=== PATIENT | male | born 1955 | race Caucasian/White ===

== ENCOUNTER 2017-05-15 15:52 | Inpatient (IN) | payer MEDICARE, OTHER ==
[2017-05-15] MEDS ORDERED: ONDANSETRON HCL/PF 2 MG/ML VIAL IV ONE (16:22)
[2017-05-15] MEDS ORDERED: HYDROmorphone HCL 1 MG/ML DISP.SYRIN IV ONE ×2 (16:22→18:27)
[2017-05-15] MEDS ORDERED: HYDROmorphone HCL 1 MG/ML DISP.SYRIN ONE ×2 (16:29→18:27)
[2017-05-15] MEDS ORDERED: ONDANSETRON HCL/PF 2 MG/ML VIAL ONE (16:29)
[2017-05-15 16:34] LABS: Hematocrit 52.1 % (42.0-52.0); Hemoglobin 17.2 gm/dL (13.5-18.0); Mean Cell Volume 91.1 fl (78-100); Mean Corpuscular Hemoglobin 30.1 pg (27-31); Mean Platelet Volume 9.4 fl (6.0-9.5); Neutrophil # 12.5 K/mm3 (1.3-6.0); Neutrophil % 76.2 % (42-75.0); Platelet Count 422 K/mm3 (150-450); Red Blood Count 5.72 M/mm3 (4.7-6.0); White Blood Count 16.5 K/mm3 (4.0-10.5)
[2017-05-15 16:47] LABS: Albumin * 4.1 gm/dl (3.4-5.0); Anion Gap 13.4 mmol/L (6.8-13.8); BUN/Creatinine Ratio 10.4 (9.0-21.6); Bilirubin, Total 0.4 mg/dL (0.0-1.1); Ca. Corrected For Albumin 9.9 mg/dL (8.4-10.2); Calcium * 10.3 mg/dL (7.9-10.9); Potassium 4.4 mmol/L (3.4-4.6); Total Protein 8.8 gm/dL (6.2-8.2)
[2017-05-15] MEDS: NORMAL SALINE 1,000 ML IV PRN ×2 (17:12→22:29)
--- NOTE | 2017-05-15 19:18 | ERNOTE ---
Abdominal HPI - Narrative Date of Service: 05/15/17 - General Chief Complaint: Abdominal Pain Time Seen by Provider: 05/15/17 15:58 Source: patient Exam Limitations: no limitations - Immun/Allergies/Home Medications Immunizatons: IMMUNIZATION HX Immunizations Up to Date Yes History of Influenza Vaccine Yes Hx Pneumococcal Vaccination Yes Allergies/Adverse Reactions: Allergies Iodinated Contrast- Oral and IV Dye [Iodinated Contrast Media - IV Dye] Allergy (Mild, Verified 05/15/17 16:08) Itching Home Medications: HOME MEDICATIONS Albuterol Sulfate [Albuterol Sulfate 0.63 MG/3ML] 0.63 mg IH QID PRN 09/21/15 [ Last Taken Unknown] Albuterol Sulfate [Proair Hfa] 2 puff IH TID PRN 09/21/15 [Last Taken Unknown] Beclomethasone Dipropionate [Qvar] 2 puff IH BID 09/21/15 [Last Taken Unknown] Losartan Potassium [Cozaar] 25 mg PO DAILY 09/21/15 [Last Taken Unknown] Metoprolol Tartrate [Lopressor] 25 mg PO BID 09/21/15 [Last Taken Unknown] Propafenone HCl 225 mg PO TID 09/21/15 [Last Taken Unknown] Ropinirole HCl 5 mg PO HS 09/21/15 [Last Taken Unknown] Salmeterol Xinafoate [Serevent Diskus] 50 mcg IH BID 09/21/15 [Last Taken Unknown] Tiotropium [place] [Spiriva] 1 cap IH DAILY 09/21/15 [Last Taken Unknown] Acetaminophen [Tylenol] 650 mg PO QID PRN #0 tablet 09/23/15 [Last Taken Unknown ] Activated Charcoal [CharcoCaps] 260 mg PO ACHS #120 capsule 09/23/15 [Last Taken Unknown] Calcium Polycarbophil [Fibercon] 625 mg PO ACHS #120 tablet 09/23/15 [Last Taken Unknown] Dicyclomine HCl [Bentyl] 20 mg PO ACHS #120 tablet 09/23/15 [Last Taken Unknown] Levothyroxine Sodium [Synthroid] 150 mcg PO DAILY@0700 #30 tablet 09/23/15 [ Last Taken Unknown] Simethicone [Mylicon Chewable Tablets] 80 mg PO ACHS #120 tab.chew 09/23/15 [ Last Taken Unknown] Sucralfate [Carafate] 1 g PO ACHS #120 tablet 09/23/15 [Last Taken Unknown] - History of Present Illness Narrative: Diffuse abdominal pain increasing over the last 2 days. Nausea. One loose stool today. Bloating. Pain diffuse, waxes and wanes, can be severe at times. No localizing pain. nothing makes this better or worse. Has not seen anyone else for this. No CP or SOB with it. No pain with urination. No new back pain. No fever. Timing: constant, getting worse Quality: aching, fullness Activities at Onset: none Modifying Factors - (Improves): Present: other - nothing Modifying Factors - (Worsens): Present: other - nothing Associated Symptoms: Present: nausea. Absent: headache, fever/chills, shortness of breath Prior Abdominal Problems: Present: similar symptoms Prior Treatment: Absent: recently seen Review of Systems - Review of Systems Constitutional: Absent: fever Respiratory: Absent: shortness of breath Cardiology: Absent: chest pain Gastrointestinal/Abdominal: Present: See HPI, abdominal pain All Other Systems: All systems neg except as marked - Patient's Past Medical History Patient History - Medical: Chronic Pain, GERD Patient History - Cardiac/Respiratory: Arrhythmias, COPD, Hypertension, Hyperlipidemia Patient History - Cancer: No Hx of Cancer Patient History - Surgical Procedures: Colonoscopy Patient History - Other: None - Family History Father Family History - Medical: No pertinent hx Family History - Cardiac/Respiratory: COPD - Social History Living Situations: significant other Abuse History: No History of abuse Psych History: No pertinent hx Smoking Status: Former smoker Have you smoked in the past 12 months: No Do you dip or chew tobacco: No Alcohol Use: rarely Drug Use: none - Immunizations Immunizations Up to Date: Yes Hx Pneumococcal Vaccination: Yes History of Influenza Vaccine: Yes Physical Exam - Physical Exam General Appearance: Present: alert, no apparent distress Head Exam: Present: normal inspection, no evidence of injury Eye Exam: Normal inspection: bilateral, PERRL: bilateral Ears, Nose, Throat: Present: normal ENT inspection Neck: Present: normal inspection Respiratory: Present: no respiratory distress, normal breath sounds, no accessory muscle use, lungs clear Cardiovascular/Chest: Present: regular rate, rhythm, normal peripheral pulses Gastrointestinal/Abdominal: Present: other - diffuse tenderness. Hypertympany. No guarding or rebound. no peritoneal signs. Moderate tenderness diffusely Back Exam: Absent: CVA tenderness (R), CVA tenderness (L) Extremity Exam: Present: normal inspection Neurological Exam: Present: alert, normal mood/affect, no motor/sensory deficits Skin Exam: Present: normal color, warm/dry ED Progress - Results and Orders Patient's Lab Results:: I have reviewed the patient's lab results. - Vital Signs Patient's Vital Signs:: I have reviewed the patient's vital signs. Vital Signs: Vital Signs 05/15/17 05/15/17 05/15/17 16:00 16:54 18:22 Temperature 37.0 C 36.4 C L Pulse Rate 81 94 70 Respiratory 18 20 22 H Rate Blood Pressure 83/52 128/61 105/48 O2 Sat by Pulse 93 86 L 93 Oximetry 05/15/17 18:53 Temperature Pulse Rate 59 L Respiratory 20 Rate Blood Pressure 114/45 O2 Sat by Pulse 91 Oximetry - EKG EKG: NSR EKG read: Interp. by me EKG Comments: NSR rate 85. Non-specific ST/T wave changes, no STEMI noted. - X-Ray X-Ray #1 X-Ray: abdomen Interpretation: Interp. by me X-ray Comments: I reviewed official radiology report - CT/Ultrasound CT/Ultrasound Narrative: I reviewed official radiology report CT scan - Progress/Reassessment Chief Complaint: Abdominal Pain Progress Note-Subjective: 05/15/17 19:16 IV fludis and pain medications given. NG placed. D/W Dr Rose and Dr Foote who will consult. Pt agreeable. Exam non-surgical at this time. Departure Clinical Impression: Abdominal pain, Partial small bowel obstruction - Departure Disposition: [facility] Condition: Stable Referrals: Brian Valadez MD [Primary Care Provider] -
[2017-05-15] MEDS ORDERED: ALBUTEROL SULFATE 200 PUFF INHALER IH PRN (20:22)
--- NOTE | 2017-05-15 20:22 | HP ---
Chief Complaint - Chief Complaint Date of Service: 05/15/17 Time of Service: 20:04 Chief Complaint: abdominal pain History of Present Illness: Ranjith Johnson, is 61-year-old white male with previous medical history of COPD, morbid obesity, atrial fibrillation, hypertension, hyperlipidemia, hypothyroidism, who was admitted on 05/15/2017 because of abdominal pain. The patient had been having diffuse abdominal pain over the last 2 days. This was associated with nausea, bloating but no vomiting. His pain is 7/10, sharp, waxing and waning. Patient says that he had right inguinal hernia that was repaired when he was a child. He has not had any abdominal surgery after that and has had no problems since then patient. He had 1 liquid stool this afternoon but had a good bowel movement earlier this morning. He denies any fever or chills; denies any constipation . In the emergency room his abdominal x-ray showed dilated bowel consistent with partial small bowel obstruction. His CT scan showed partial small bowel obstruction on the mid to distal jejunal area of undetermined etiology. He was then admitted for further management. - Patient's Past Medical History Patient History - Medical: Chronic Pain, GERD Patient History - Cardiac/Respiratory: Arrhythmias, COPD, Hypertension, Hyperlipidemia Patient History - Cancer: No Hx of Cancer Patient History - Surgical Procedures: Colonoscopy Patient History - Other: None - Family History Father Family History - Medical: No pertinent hx Family History - Cardiac/Respiratory: COPD - Social History Living Situations: significant other Abuse History: No History of abuse Psych History: No pertinent hx Smoking Status: Former smoker Have you smoked in the past 12 months: No Do you dip or chew tobacco: No Alcohol Use: rarely Drug Use: none - Immunizations Immunizations Up to Date: Yes Hx Pneumococcal Vaccination: Yes History of Influenza Vaccine: Yes Review Of Systems (GEN) - Review of Systems Generalized/Overall Review: Absent: Chills, Fever Respiratory: Absent: Cough, Shortness of Breath Cardiac: Absent: Chest Pain, Edema, Palpitations Abdominal: Present: Nausea, Abdominal Pain. Absent: Vomiting, Constipation Genitourinary: Absent: Urgency, Frequency Musculoskeletal: Present: Joint Pain Immunizations: IMMUNIZATION HX Immunizations Up to Date Yes History of Influenza Vaccine Yes Hx Pneumococcal Vaccination Yes Allergies/Adverse Reactions: Allergies Allergy/AdvReac Type Severity Reaction Status Date / Time Iodinated Contrast- Oral and Allergy Mild Itching Verified 05/15/17 16:08 IV Dye [Iodinated Contrast Media - IV Dye] Home Medications: HOME MEDICATIONS Albuterol Sulfate [Albuterol Sulfate 0.63 MG/3ML] 0.63 mg IH QID PRN 09/21/15 [ Last Taken Unknown] Albuterol Sulfate [Proair Hfa] 2 puff IH TID PRN 09/21/15 [Last Taken Unknown] Beclomethasone Dipropionate [Qvar] 2 puff IH BID 09/21/15 [Last Taken Unknown] Losartan Potassium [Cozaar] 50 mg PO DAILY 09/21/15 [Last Taken Unknown] Metoprolol Tartrate [Lopressor] 50 mg PO DAILY 09/21/15 [Last Taken Unknown] Ropinirole HCl 1 mg PO HS 09/21/15 [Last Taken Unknown] Tiotropium [place] [Spiriva] 1 cap IH DAILY 09/21/15 [Last Taken Unknown] Acetaminophen [Tylenol] 650 mg PO QID PRN #0 tablet 09/23/15 [Last Taken Unknown ] Amiodarone HCl [Cordarone] 400 mg PO DAILY 05/15/17 [Last Taken Unknown] Aspirin [Aspirin Enteric Coated] 81 mg PO DAILY 05/15/17 [Last Taken Unknown] Levothyroxine Sodium [Synthroid] 175 mcg PO DAILY 05/15/17 [Last Taken Unknown] Pantoprazole Sodium 40 mg PO DAILY 05/15/17 [Last Taken Unknown] Exam - Exam Vital Signs: Vital Signs - Last Taken Temp 36.4 C L 05/15/17 18:22 Pulse 67 05/15/17 19:39 Resp 20 05/15/17 19:39 BP 113/56 05/15/17 19:39 Pulse Ox 93 05/15/17 19:39 Constitutional: Present: Alert, Oriented x3, Cooperative ENT Exam: Present: hearing grossly normal Eye Exam: bilateral eye: normal inspection, PERRL, EOMI Neck: Present: supple Respiratory: Present: decreased breath sounds, No rales, No wheezing Cardiovascular/Chest: Present: regular rate, rhythm, no JVD, no murmur Abdomen: Present: no rebound tenderness, tender - mild. diffuse, firm, distended , hypoactive Extremity: Present: no calf tenderness, pedal edema Diagnostic Studies: Laboratory Results WBC 16.5 K/mm3 (4.0-10.5) H 05/15/17 16:20 RBC 5.72 M/mm3 (4.7-6.0) 05/15/17 16:20 Hgb 17.2 gm/dL (13.5-18.0) 05/15/17 16:20 Hct 52.1 % (42.0-52.0) H 05/15/17 16:20 MCV 91.1 fl (78-100) 05/15/17 16:20 MCH 30.1 pg (27-31) 05/15/17 16:20 MCHC 33.0 g/dl (32-36) 05/15/17 16:20 RDW 14.0 % (11.5-14.0) 05/15/17 16:20 Plt Count 422 K/mm3 (150-450) 05/15/17 16:20 MPV 9.4 fl (6.0-9.5) 05/15/17 16:20 Immature Gran % (Auto) 0.70 % (0.001-0.429) H 05/15/17 16:20 Immature Gran # (Auto) 0.12 K/mm3 (0.000-0.0310) H 05/15/17 16:20 Neutrophils % 76.2 % (42-75.0) H 05/15/17 16:20 Lymphocytes % 17.0 % (20-51) L 05/15/17 16:20 Monocytes % 4.9 % (0.0-9) 05/15/17 16:20 Eosinophils % 0.7 % (0.0-3.0) 05/15/17 16:20 Basophils % 0.5 % (0.0-1.0) 05/15/17 16:20 Nucleated RBC % 0.0 k/mm3 (0-1) 05/15/17 16:20 Neutrophils # 12.5 K/mm3 (1.3-6.0) H 05/15/17 16:20 Lymphocytes # 2.8 k/mm3 (1.5-3.5) 05/15/17 16:20 Monocytes # 0.8 k/mm3 (0.0-1.0) 05/15/17 16:20 Eosinophils # 0.1 k/mm3 (0.0-0.7) 05/15/17 16:20 Absolute Basophils 0.1 k/mm3 (0.0-0.1) 05/15/17 16:20 Sodium 137 mmol/L (132-142) 05/15/17 16:20 Plasma Sodium 137 mmol/L (130-142) 05/15/17 16:20 Potassium 4.4 mmol/L (3.4-4.6) 05/15/17 16:20 Chloride 98 mmol/L (97-106) 05/15/17 16:20 Carbon Dioxide 30.0 mmol/L (24-32.6) 05/15/17 16:20 Anion Gap 13.4 mmol/L (6.8-13.8) 05/15/17 16:20 BUN 17 mg/dL (6-23) 05/15/17 16:20 Creatinine 1.64 mg/dL (0.4-1.4) H 05/15/17 16:20 Est GFR (Non-Af Amer) 45 mL/min (60-130) L 05/15/17 16:20 BUN/Creatinine Ratio 10.4 (9.0-21.6) 05/15/17 16:20 Random Glucose 117 mg/dL (70-110) H 05/15/17 16:20 Calcium 10.3 mg/dL (7.9-10.9) 05/15/17 16:20 Calcium Adj for Albumin 9.9 mg/dL (8.4-10.2) 05/15/17 16:20 Total Bilirubin 0.4 mg/dL (0.0-1.1) 05/15/17 16:20 AST 22 U/L (0-48) 05/15/17 16:20 ALT 44 U/L (19-67) 05/15/17 16:20 Alkaline Phosphatase 103 U/L (50-170) 05/15/17 16:20 Total Protein 8.8 gm/dL (6.2-8.2) H 05/15/17 16:20 Albumin 4.1 gm/dl (3.4-5.0) 05/15/17 16:20 Amylase 49 U/L (25-115) 05/15/17 16:20 Lipase 111 U/L (73-393) 05/15/17 16:20 Assessment/Plan - Assessment/Plan (1) Partial small bowel obstruction Assessment: will continue with IVF, NPO and get surgical consult and pain control. continue with NGT suction. Problem: Acute (2) Abdominal pain Assessment: continue with pain control Problem: Acute Qualifiers: (3) Hypertension Problem: Acute (4) GERD (gastroesophageal reflux disease) Problem: Acute (5) Hypothyroid Problem: Acute (6) COPD (chronic obstructive pulmonary disease) Problem: Chronic Qualifiers: (7) History of atrial fibrillation Problem: Chronic (8) Leukocytosis Assessment: likley reactive. will monitor Problem: Acute
[2017-05-15] MEDS ORDERED: BUDESONIDE 0.5 MG/2 ML VIAL.NEB IH SCH (21:15)
[2017-05-15] MEDS: PANTOPRAZOLE SODIUM 40 MG in NORMAL SALINE 100 ML IV SCH (22:29)
[2017-05-15] MEDS: HYDROmorphone HCL 1 MG/ML DISP.SYRIN IV PRN (22:36)
[2017-05-16] MEDS ORDERED: BUDESONIDE 0.5 MG/2 ML VIAL.NEB IH ONE (01:46)
[2017-05-16] MEDS ORDERED: LORazepam 2 MG/ML DISP.SYRIN IV ONE (03:57)
[2017-05-16] MEDS: ALBUTEROL SULFATE/IPRATROPIUM 3 ML NEBU IH PRN (04:09)
[2017-05-16] MEDS: HYDROmorphone HCL 1 MG/ML DISP.SYRIN IV PRN ×5 (05:46→21:58)
[2017-05-16 05:51] LABS: Urine Bilirubin 1 mg/dl (NEGATIVE); Urine Blood Negative /ul (NEGATIVE); Urine Ketone Negative (NEGATIVE); Urine Nitrite Negative (NEGATIVE); Urine Protein 100 mg/dL (NEGATIVE); Urine Specific Gravity >=1.030 SP.GR. (1.005-1.030); Urine Urobilinogen Normal (NORMAL); Urine pH 5.5 pH (5.0-7.0)
[2017-05-16 06:01] LABS: Urine Appearance Slightly Cloudy; Urine Color Dark Yellow
[2017-05-16 06:02] LABS: Urine Bacteria TRACE; Urine Coarse Granular Cast 0-5 /LPF; Urine Hyaline Cast >25 /LPF; Urine RBC TRACE /hpf (0-5); Urine Transitional Epi Cells Moderate - 2+ /hpf
[2017-05-16] MEDS: BUDESONIDE 0.5 MG/2 ML VIAL.NEB IH SCH ×2 (06:11→18:20)
[2017-05-16] MEDS: NORMAL SALINE 1,000 ML IV PRN ×2 (06:53→17:52)
[2017-05-16] MEDS ORDERED: ALBUTEROL SULFATE 2.5 MG/0.5 ML VIAL.NEB IH PRN (07:45)
--- NOTE | 2017-05-16 09:22 | PN ---
Subjective - Date and Time Seen Date: 05/16/17 Time: 09:18 Subjective Narrative: Patient is still having abdominal pain, nausea but says he has been passing gas. Objective - Review of Systems Generalized/Overall Review: Denies: Chills, Fever Respiratory: Reports: Shortness of Breath. Denies: Wheezing Cardiac: Denies: Chest Pain, Edema, Palpitations Abdominal: Reports: Nausea, Abdominal Pain. Denies: Vomiting Genitourinary Symptoms: Denies: Urgency, Frequency Musculoskeletal Complaints: Denies: Joint Pain - Vitals Vitals: Last Vital Signs Temp 36.9 C 05/16/17 06:45 Pulse 58 L 05/16/17 06:45 Resp 22 H 05/16/17 06:45 BP 148/65 05/16/17 06:45 Pulse Ox 97 05/16/17 08:30 - Abnormal Lab Findings Abnormal Lab Findings: Abnormal Lab Results 05/16/17 Range/Units 05:43 Urine Protein 100 H (NEGATIVE) mg/dL Urine Bilirubin 1 H (NEGATIVE) mg/dl Prot Sulfosalicylic Acd 3+ H (0) mg/dL Urine WBC 5-10 H (0-5) /hpf Ur Epithelial Cells 5-10 H (0-5) /hpf Ur Transition Epith Cell Moderate - 2+ H (NONE) /hpf Hyaline Casts >25 H (NONE) /LPF Coarse Granular Casts 0-5 H (NONE) /LPF - Exam Constitutional: Present: Alert, Oriented x3, Cooperative ENT Exam: Present: hearing grossly normal Neck: Present: supple Respiratory: Present: decreased breath sounds. Absent: No rales, No wheezing Cardiovascular/Chest: Present: regular rate, rhythm, no JVD, no murmur Abdomen: Present: tender, firm, distended, hypoactive Extremity: Present: no pedal edema, no calf tenderness Assessment/Plan - Problems/Diagnosis (1) Partial small bowel obstruction Problem: Acute Narrative: continue with NPO/IVF/Pain control. NGT in place. (2) Abdominal pain Problem: Acute Qualifiers: Narrative: continue with pain control (3) Hypertension Problem: Acute (4) GERD (gastroesophageal reflux disease) Problem: Acute (5) Hypothyroid Problem: Acute (6) COPD (chronic obstructive pulmonary disease) Problem: Chronic Qualifiers: (7) History of atrial fibrillation Problem: Chronic (8) Leukocytosis Problem: Acute Narrative: CXR shows focal consolidation RUL - atelectasis vs infection. Will start patient on Rocephin and Flagyl.
[2017-05-16 10:18] LABS: Hematocrit 44.4 % (42.0-52.0); Hemoglobin 14.3 gm/dL (13.5-18.0); Mean Cell Volume 93.9 fl (78-100); Mean Corpuscular Hemoglobin 30.2 pg (27-31); Mean Corpuscular Hgb Conc 32.2 g/dl (32-36); Neutrophil # 8.8 K/mm3 (1.3-6.0); Neutrophil % 73.5 % (42-75.0); Platelet Count 291 K/mm3 (150-450); Red Blood Count 4.73 M/mm3 (4.7-6.0); Red Cell Distribution Width 14.3 % (11.5-14.0)
[2017-05-16 10:24] LABS: Anion Gap 11.5 mmol/L (6.8-13.8); BUN/Creatinine Ratio 10.8 (9.0-21.6); Calcium * 8.7 mg/dL (7.9-10.9); Carbon Dioxide 30.2 mmol/L (24-32.6); Estimated Creat Clear 39.7; Potassium 4.7 mmol/L (3.4-4.6)
[2017-05-16] MEDS: metroNIDAZOLE/SODIUM CHLORIDE 500 MG/100 ML BAG IV SCH ×2 (11:24→17:52)
--- NOTE | 2017-05-16 13:27 | CONS ---
[facility] - General Date of Service: 05/16/17 Narrative: Asked to see regarding a PSBO This gentleman presented to the ER with complaints of abdominal bloating and pain. A plain AXR and subsequent CT revealed a partial small bowel obstruction. He has had one previous episode similar to this that resolved by conservative means. His only previous abdominal operation was an inguinal hernia repair in childhood. He had an NG placed but it was only in the esophagus and was advanced into the stomach today. He states he is feeling better and is passing flatus. Had three BMs yesterday but none today. AXR report shows improvement today. Source: patient, RN/MD, old records Exam Limitations: no limitations - History of Present Illness Allergies/Adverse Reactions: Allergies Iodinated Contrast- Oral and IV Dye [Iodinated Contrast Media - IV Dye] Allergy (Mild, Verified 05/15/17 16:08) Itching Home Medications: Home Medications Medication Instructions Recorded Last Taken Albuterol Sulfate [Albuterol 0.63 mg IH QID PRN 09/21/15 Unknown Sulfate 0.63 MG/3ML] Albuterol Sulfate [Proair Hfa] 2 puff IH TID PRN 09/21/15 Unknown Beclomethasone Dipropionate [Qvar] 2 puff IH BID 09/21/15 Unknown Losartan Potassium [Cozaar] 50 mg PO DAILY 09/21/15 Unknown Metoprolol Tartrate [Lopressor] 50 mg PO DAILY 09/21/15 Unknown Ropinirole HCl 1 mg PO HS 09/21/15 Unknown Tiotropium [place] [Spiriva] 1 cap IH DAILY 09/21/15 Unknown Amiodarone HCl [Cordarone] 400 mg PO DAILY 05/15/17 Unknown Aspirin [Aspirin Enteric Coated] 81 mg PO DAILY 05/15/17 Unknown Levothyroxine Sodium [Synthroid] 175 mcg PO DAILY 05/15/17 Unknown Pantoprazole Sodium 40 mg PO DAILY 05/15/17 Unknown - Patient's Past Medical History Patient History - Medical: Chronic Pain, GERD Patient History - Cardiac/Respiratory: Arrhythmias, COPD, Hypertension, Hyperlipidemia Patient History - Cancer: No Hx of Cancer Patient History - Surgical Procedures: Colonoscopy, Other - Hernia surgery Patient History - Other: None - Family History Father Family History - Medical: No pertinent hx Family History - Cardiac/Respiratory: COPD - Social History Living Situations: significant other Abuse History: No History of abuse Psych History: No pertinent hx Smoking Status: Former smoker Have you smoked in the past 12 months: No Do you dip or chew tobacco: No Smoking Stop Date: 07/09/16 Alcohol Use: rarely Drug Use: none - Immunizations Immunizations Up to Date: Yes Hx Pneumococcal Vaccination: Yes History of Influenza Vaccine: Yes Procedures CLOSURE SKIN & SUBCUTANEOUS NEC (04/30/05) CONTRAST ARTHROGRAM (10/04/13) Medications - Medications Current Medications: Current Medications Albuterol/Ipratropium (Duoneb 2.5-0.5mg/3ml Soln) 3 ml IH Q4H PRN PRN Reason: Dyspnea Stop: 06/15/17 03:57 Last Admin: 05/16/17 04:09 Dose: 3 ml Budesonide (Pulmicort Respules) 0.5 mg IH BIDRT SETH Stop: 06/14/17 21:16 Last Admin: 05/16/17 06:11 Dose: 0.5 mg Sodium Chloride (Sodium Chloride 0.9%) 1,000 mls @ 125 mls/hr IV .Q8H PRN PRN Reason: HYDRATION Stop: 06/14/17 16:24 Last Admin: 05/16/17 06:53 Dose: 125 mls/hr Pantoprazole Sodium 40 mg/ (Sodium Chloride) 100 mls @ 400 mls/hr IV Q24H SETH Stop: 06/14/17 20:31 Last Admin: 05/15/17 22:29 Dose: 400 mls/hr Ceftriaxone Sodium 1,000 mg/ (Sodium Chloride) 100 mls @ 200 mls/hr IV Q24H SETH PRN Reason: Protocol Stop: 06/15/17 10:01 Last Admin: 05/16/17 10:40 Dose: 200 mls/hr Metronidazole (Flagyl) 500 mg in 100 mls @ 100 mls/hr IV Q8H SETH PRN Reason: Protocol Stop: 06/15/17 10:01 Last Admin: 05/16/17 11:24 Dose: 100 mls/hr Review of Systems - Review of Systems Abdominal: Present: Other - Bloating Misc: All systems neg except as marked Physical Examination - Exam Vital Signs: Vital Signs - Last Taken Temp 36.3 C L 05/16/17 11:00 Pulse 56 L 05/16/17 11:00 Resp 20 05/16/17 11:00 BP 173/63 05/16/17 11:00 Pulse Ox 91 05/16/17 11:00 O2 Oxygen Delivery Method Nasal Cannula Constitutional: Present: Alert, Oriented x3, Cooperative, Well developed, Well nourished, No distress, Morbidly obese ENT Exam: Present: other - Bearded. Nasal cannula oxygen. NG tube. Eye Exam: bilateral eye: normal inspection Neck: Present: supple, trachea midline Respiratory: Present: no respiratory distress, no accessory muscle use Abdomen: Present: nontender, obese, distended Skin Exam: Present: normal color, warm/dry Neurologic: Present: no motor/sensory deficits Appearance: Present: appropriate appearance, appropriate insight Eye contact: Present: cooperative, good eye contact - Results and Findings: Lab/Microbiology results last 24 hrs: Abnormal/Pending Laboratory Last 24 HRS 05/16/17 05/16/17 05/16/17 10:08 10:08 05:43 WBC 12.0 H D RDW 14.3 H Immature Gran % (Auto) 0.70 H Immature Gran # (Auto) 0.08 H Lymphocytes % 16.6 L Neutrophils # 8.8 H Potassium 4.7 H Creatinine 2.12 H D Est GFR (Non-Af Amer) 34 L D Urine Protein 100 H Urine Bilirubin 1 H Prot Sulfosalicylic Acd 3+ H Urine WBC 5-10 H Ur Epithelial Cells 5-10 H Ur Transition Epith Cell Moderate - 2+ H Hyaline Casts >25 H Coarse Granular Casts 0-5 H - Assessments/Findings (1) Partial small bowel obstruction Diagnosis(s): P: Agree with gut rest. Appears to be improving. No surgical intervention indicated at this point. Problem: Acute
[2017-05-16] MEDS: PANTOPRAZOLE SODIUM 40 MG in NORMAL SALINE 100 ML IV SCH (20:32)
[2017-05-17] MEDS: metroNIDAZOLE/SODIUM CHLORIDE 500 MG/100 ML BAG IV SCH ×3 (01:52→18:11)
[2017-05-17] MEDS: HYDROmorphone HCL 1 MG/ML DISP.SYRIN IV PRN (02:21)
[2017-05-17] MEDS: NORMAL SALINE 1,000 ML IV PRN ×3 (04:20→21:34)
[2017-05-17] MEDS: BUDESONIDE 0.5 MG/2 ML VIAL.NEB IH SCH ×2 (06:07→18:14)
[2017-05-17] MEDS: HYDROmorphone HCL 2 MG/ML VIAL IV PRN ×4 (08:05→20:31)
[2017-05-17] MEDS: ENALAPRILAT DIHYDRATE 1.25 MG/ML VIAL IV SCH ×3 (08:14→20:31)
[2017-05-17] MEDS: TIOTROPIUM BROMIDE 5 CAP INHALER IH SCH (10:15)
--- NOTE | 2017-05-17 10:29 | PN ---
Subjective - Date and Time Seen Date: 05/17/17 Time: 10:25 Subjective Narrative: Patient NAD . Had 350 ml of NGT drainage since yesterd and a total of 1000 ml since day of admission Objective - Review of Systems Generalized/Overall Review: Denies: Chills, Fever Respiratory: Reports: Shortness of Breath Cardiac: Reports: Edema. Denies: Chest Pain, Palpitations Abdominal: Reports: Nausea, Abdominal Pain. Denies: Vomiting Genitourinary Symptoms: Denies: Urgency, Frequency - Vitals Vitals: Last Vital Signs Temp 36.6 C 05/17/17 06:40 Pulse 68 05/17/17 08:14 Resp 18 05/17/17 06:40 BP 188/68 05/17/17 08:14 Pulse Ox 95 05/17/17 08:00 - Exam Constitutional: Present: Alert, Oriented x3, Cooperative ENT Exam: Present: hearing grossly normal Respiratory: Present: decreased breath sounds, No rales, No wheezing Cardiovascular/Chest: Present: regular rate, rhythm, no JVD, no murmur Abdomen: Present: soft, nontender, obese, distended, hypoactive Extremity: Present: no calf tenderness, pedal edema Assessment/Plan - Problems/Diagnosis (1) Partial small bowel obstruction Problem: Acute Narrative: continue with gut rest and IVF (2) Abdominal pain Problem: Acute Qualifiers: Narrative: improved (3) Hypertension Problem: Acute (4) GERD (gastroesophageal reflux disease) Problem: Acute (5) Hypothyroid Problem: Acute (6) COPD (chronic obstructive pulmonary disease) Problem: Chronic Qualifiers: (7) History of atrial fibrillation Problem: Chronic (8) Leukocytosis Problem: Acute Narrative: on Rocephin and flagyl. will recheck labs today. (9) ARF (acute renal failure) Problem: Acute Narrative: will increase IVF. recheck labs today.
[2017-05-17 12:11] LABS: Hematocrit 39.3 % (42.0-52.0); Hemoglobin 12.8 gm/dL (13.5-18.0); Mean Cell Volume 93.1 fl (78-100); Mean Corpuscular Hemoglobin 30.3 pg (27-31); Mean Corpuscular Hgb Conc 32.6 g/dl (32-36); Mean Platelet Volume 8.8 fl (6.0-9.5); Neutrophil # 7.9 K/mm3 (1.3-6.0); Neutrophil % 73.1 % (42-75.0); Platelet Count 239 K/mm3 (150-450); Red Blood Count 4.22 M/mm3 (4.7-6.0); Red Cell Distribution Width 14.3 % (11.5-14.0); White Blood Count 10.8 K/mm3 (4.0-10.5)
[2017-05-17 12:18] LABS: Calcium * 8.8 mg/dL (7.9-10.9); Carbon Dioxide 29.2 mmol/L (24-32.6); Estimated Creat Clear 68.3; Potassium 4.2 mmol/L (3.4-4.6)
--- NOTE | 2017-05-17 14:55 | PN ---
Subjective - Date and Time Seen Date: 05/17/17 Time: 14:51 Subjective Narrative: FU PSBO States feeling better Pos. flatus Neg BM AXR shows resolution of PSBO Objective Objective Narrative: Pt sitting on edge of bed and playing cards. Succus is bilious. Abdomen is less distended, soft, nontender - Review of Systems Misc: All systems neg except as marked - Vitals Vitals: Last Vital Signs Temp 36.8 C 05/17/17 14:00 Pulse 73 05/17/17 14:49 Resp 18 05/17/17 14:00 BP 166/80 05/17/17 14:49 Pulse Ox 98 05/17/17 14:00 - Abnormal Lab Findings Abnormal Lab Findings: Abnormal Lab Results 05/17/17 Range/Units 12:03 WBC 10.8 H (4.0-10.5) K/mm3 RBC 4.22 L (4.7-6.0) M/mm3 Hgb 12.8 L (13.5-18.0) gm/dL Hct 39.3 L (42.0-52.0) % RDW 14.3 H (11.5-14.0) % Immature Gran % (Auto) 0.80 H (0.001-0.429) % Immature Gran # (Auto) 0.09 H (0.000-0.0310) K/mm3 Lymphocytes % 17.6 L (20-51) % Neutrophils # 7.9 H (1.3-6.0) K/mm3 Assessment/Plan - Problems/Diagnosis (1) Partial small bowel obstruction Problem: Acute Narrative: Improving. Clamp NG. If tolerated start clears.
[2017-05-17] MEDS: PANTOPRAZOLE SODIUM 40 MG in NORMAL SALINE 100 ML IV SCH (20:32)
[2017-05-18] MEDS: HYDROmorphone HCL 2 MG/ML VIAL IV PRN ×3 (01:16→10:04)
[2017-05-18] MEDS: ENALAPRILAT DIHYDRATE 1.25 MG/ML VIAL IV SCH ×4 (02:41→21:09)
[2017-05-18] MEDS: metroNIDAZOLE/SODIUM CHLORIDE 500 MG/100 ML BAG IV SCH ×3 (02:42→17:02)
[2017-05-18] MEDS: NORMAL SALINE 1,000 ML IV PRN (04:40)
[2017-05-18] MEDS: BUDESONIDE 0.5 MG/2 ML VIAL.NEB IH SCH ×2 (06:11→18:08)
[2017-05-18] MEDS: DEXTROSE 5%-NORMAL SALINE 1,000 ML IV PRN ×2 (07:26→18:23)
[2017-05-18] MEDS: TIOTROPIUM BROMIDE 5 CAP INHALER IH SCH (08:23)
--- NOTE | 2017-05-18 08:27 | PN ---
Subjective - Date and Time Seen Date: 05/18/17 Time: 08:23 Subjective Narrative: Patient sasy that he had no N/v with NGT clamped. Objective - Review of Systems Generalized/Overall Review: Denies: Chills, Fever Respiratory: Denies: Cough, Shortness of Breath Cardiac: Denies: Chest Pain, Palpitations Abdominal: Denies: Nausea, Vomiting, Abdominal Pain Genitourinary Symptoms: Denies: Urgency, Frequency - Vitals Vitals: Last Vital Signs Temp 37 C 05/18/17 07:54 Pulse 62 05/18/17 07:54 Resp 20 05/18/17 07:54 BP 172/89 05/18/17 07:54 Pulse Ox 94 05/18/17 07:54 - Abnormal Lab Findings Abnormal Lab Findings: Abnormal Lab Results 05/17/17 Range/Units 12:03 WBC 10.8 H (4.0-10.5) K/mm3 RBC 4.22 L (4.7-6.0) M/mm3 Hgb 12.8 L (13.5-18.0) gm/dL Hct 39.3 L (42.0-52.0) % RDW 14.3 H (11.5-14.0) % Immature Gran % (Auto) 0.80 H (0.001-0.429) % Immature Gran # (Auto) 0.09 H (0.000-0.0310) K/mm3 Lymphocytes % 17.6 L (20-51) % Neutrophils # 7.9 H (1.3-6.0) K/mm3 - Exam Constitutional: Present: Alert, Oriented x3, Cooperative ENT Exam: Present: hearing grossly normal Neck: Present: supple Respiratory: Present: decreased breath sounds, No rales, No wheezing Cardiovascular/Chest: Present: regular rate, rhythm, no JVD, no murmur Abdomen: Present: soft, obese, tender - but minimal, distended - but less Assessment/Plan - Problems/Diagnosis (1) Partial small bowel obstruction Problem: Acute Narrative: will get an ABXR .if PSBO compleletly resolved , will pull out NGT and start clear liquids. (2) Abdominal pain Problem: Acute Qualifiers: (3) Hypertension Problem: Acute (4) GERD (gastroesophageal reflux disease) Problem: Acute (5) Hypothyroid Problem: Acute (6) COPD (chronic obstructive pulmonary disease) Problem: Chronic Qualifiers: (7) History of atrial fibrillation Problem: Chronic (8) Leukocytosis Problem: Acute Narrative: atelectasis vs infection on CXR. continue with IV antibiotics- for Pneumonia, likely aspiration. (9) ARF (acute renal failure) Problem: Acute
[2017-05-18] MEDS: traMADol HCL 50 MG TABLET PO PRN ×2 (14:23→21:07)
--- NOTE | 2017-05-18 14:24 | PN ---
Subjective - Date and Time Seen Date: 05/18/17 Time: 14:22 Subjective Narrative: FU PSBO Doing better. NG is out and he is tolerating clear liquids. No c/o abdominal pain. AXR shows resolution with normal bowel gas pattern. Objective Objective Narrative: ABD: obese. soft, nontender. - Vitals Vitals: Last Vital Signs Temp 36.5 C 05/18/17 14:19 Pulse 64 05/18/17 14:19 Resp 20 05/18/17 14:19 BP 191/94 05/18/17 14:19 Pulse Ox 97 05/18/17 14:19 Assessment/Plan Plan Narrative: A: Clinically improved. P: Will sign off and be available PRN. Thank you for allowing me to participate in his care. - Problems/Diagnosis (1) Partial small bowel obstruction Problem: Acute
[2017-05-18] MEDS: PANTOPRAZOLE SODIUM 40 MG in NORMAL SALINE 100 ML IV SCH (21:08)
[2017-05-19] MEDS: metroNIDAZOLE/SODIUM CHLORIDE 500 MG/100 ML BAG IV SCH ×3 (02:48→17:33)
[2017-05-19] MEDS: ENALAPRILAT DIHYDRATE 1.25 MG/ML VIAL IV SCH ×2 (02:49→08:47)
[2017-05-19] MEDS: DEXTROSE 5%-NORMAL SALINE 1,000 ML IV PRN ×2 (03:30→16:35)
[2017-05-19] MEDS: traMADol HCL 50 MG TABLET PO PRN ×4 (03:32→22:27)
[2017-05-19] MEDS: ALBUTEROL SULFATE/IPRATROPIUM 3 ML NEBU IH PRN (06:24)
[2017-05-19] MEDS: BUDESONIDE 0.5 MG/2 ML VIAL.NEB IH SCH ×2 (06:25→18:23)
[2017-05-19] MEDS: TIOTROPIUM BROMIDE 5 CAP INHALER IH SCH (08:47)
[2017-05-19] MEDS ORDERED: ACETAMINOPHEN 325 MG TABLET PO PRN (08:57)
[2017-05-19] MEDS ORDERED: AMIODARONE HCL 200 MG TABLET PO SCH (09:00)
[2017-05-19] MEDS ORDERED: LOSARTAN POTASSIUM 50 MG PO SCH (09:00)
[2017-05-19] MEDS: METOPROLOL TARTRATE 50 MG TABLET PO SCH (09:41)
[2017-05-19] MEDS: ASPIRIN 81 MG TABLET.DR PO SCH (09:42)
[2017-05-19] MEDS: LEVOTHYROXINE SODIUM 175 MCG TABLET PO SCH (09:42)
[2017-05-19] MEDS: LOSARTAN POTASSIUM 50 MG TABLET PO SCH (09:42)
--- NOTE | 2017-05-19 11:47 | PN ---
Subjective - Date and Time Seen Date: 05/19/17 Time: 11:44 Subjective Narrative: Toelrating full liquids started thismorning. no BM yet but passes gas. Objective - Review of Systems Generalized/Overall Review: Denies: Chills, Fever Respiratory: Denies: Cough, Shortness of Breath Cardiac: Denies: Chest Pain, Palpitations Abdominal: Denies: Nausea, Vomiting, Abdominal Pain Genitourinary Symptoms: Denies: Urgency, Frequency - Vitals Vitals: Last Vital Signs Temp 36.8 C 05/19/17 10:16 Pulse 64 05/19/17 10:16 Resp 20 05/19/17 10:16 BP 179/88 05/19/17 10:16 Pulse Ox 92 05/19/17 10:16 - Exam Constitutional: Present: Alert, Oriented x3, Cooperative, Morbidly obese ENT Exam: Present: hearing grossly normal Neck: Present: supple Respiratory: Present: decreased breath sounds, No rales, No wheezing Cardiovascular/Chest: Present: regular rate, rhythm, no JVD, no murmur Abdomen: Present: soft, nontender, obese, hypoactive Extremity: Present: no calf tenderness, pedal edema Assessment/Plan - Problems/Diagnosis (1) Partial small bowel obstruction Problem: Resolved Narrative: will do labs in am (2) Abdominal pain Problem: Resolved Qualifiers: (3) Hypertension Problem: Chronic Qualifiers: Hypertension type: essential hypertension Qualified Code(s): I10 - Essential (primary) hypertension (4) GERD (gastroesophageal reflux disease) Problem: Chronic (5) Hypothyroid Problem: Chronic (6) COPD (chronic obstructive pulmonary disease) Problem: Chronic Qualifiers: (7) History of atrial fibrillation Problem: Chronic (8) Leukocytosis Problem: Acute Narrative: will do a follow up CXR in a.m.- atelectasis vs infection. continue with IV antibiotics for possible aspiration pneumonia. (9) ARF (acute renal failure) Problem: Resolved
[2017-05-19] MEDS: ALBUTEROL SULFATE 2.5 MG/0.5 ML VIAL.NEB IH PRN (18:24)
[2017-05-19] MEDS: PANTOPRAZOLE SODIUM 40 MG in NORMAL SALINE 100 ML IV SCH (20:01)
[2017-05-19] MEDS: rOPINIRole HCL 1 MG TABLET PO SCH (20:01)
[2017-05-20] MEDS: metroNIDAZOLE/SODIUM CHLORIDE 500 MG/100 ML BAG IV SCH ×3 (02:05→17:49)
[2017-05-20] MEDS: DEXTROSE 5%-NORMAL SALINE 1,000 ML IV PRN (02:06)
[2017-05-20] MEDS: BUDESONIDE 0.5 MG/2 ML VIAL.NEB IH SCH ×2 (06:21→18:10)
[2017-05-20 06:22] LABS: Hematocrit 40.1 % (42.0-52.0); Hemoglobin 13.7 gm/dL (13.5-18.0); Mean Cell Volume 88.3 fl (78-100); Mean Corpuscular Hemoglobin 30.2 pg (27-31); Mean Corpuscular Hgb Conc 34.2 g/dl (32-36); Mean Platelet Volume 9.3 fl (6.0-9.5); Neutrophil # 4.8 K/mm3 (1.3-6.0); Neutrophil % 68.2 % (42-75.0); Platelet Count 254 K/mm3 (150-450); Red Blood Count 4.54 M/mm3 (4.7-6.0); Red Cell Distribution Width 13.5 % (11.5-14.0); White Blood Count 7.1 K/mm3 (4.0-10.5)
[2017-05-20 06:27] LABS: Anion Gap 6.8 mmol/L (6.8-13.8); Calcium * 8.7 mg/dL (7.9-10.9); Estimated Creat Clear 78.6; Potassium 3.8 mmol/L (3.4-4.6)
[2017-05-20 06:49] LABS: BUN/Creatinine Ratio 5.6 (9.0-21.6)
[2017-05-20] MEDS: LEVOTHYROXINE SODIUM 175 MCG TABLET PO SCH (08:09)
[2017-05-20] MEDS: TIOTROPIUM BROMIDE 5 CAP INHALER IH SCH (08:09)
[2017-05-20] MEDS: AMIODARONE HCL 200 MG TABLET PO SCH (08:09)
[2017-05-20] MEDS: ASPIRIN 81 MG TABLET.DR PO SCH (08:09)
[2017-05-20] MEDS: amLODIPine BESYLATE 5 MG TABLET PO SCH ×2 (08:10→10:29)
[2017-05-20] MEDS: LOSARTAN POTASSIUM 50 MG TABLET PO SCH (08:10)
[2017-05-20] MEDS: METOPROLOL TARTRATE 50 MG TABLET PO SCH (08:14)
--- NOTE | 2017-05-20 08:49 | PN ---
Subjective - Date and Time Seen Date: 05/20/17 Time: 08:40 Subjective Narrative: No BM yet but passes gas. No abdominal pain/N/V. Objective - Review of Systems Generalized/Overall Review: Denies: Weakness, Chills, Fever Respiratory: Denies: Cough, Shortness of Breath Cardiac: Denies: Chest Pain, Edema, Palpitations Abdominal: Denies: Nausea, Vomiting, Abdominal Pain Genitourinary Symptoms: Denies: Urgency, Frequency - Vitals Vitals: Last Vital Signs Temp 36.6 C 05/20/17 03:28 Pulse 64 05/20/17 08:14 Resp 20 05/20/17 06:31 BP 164/77 05/20/17 08:14 Pulse Ox 98 05/20/17 06:21 - Abnormal Lab Findings Abnormal Lab Findings: Abnormal Lab Results 05/20/17 05/20/17 Range/Units 05:50 05:50 RBC 4.54 L (4.7-6.0) M/mm3 Hct 40.1 L (42.0-52.0) % Immature Gran % (Auto) 1.40 H (0.001-0.429) % Immature Gran # (Auto) 0.10 H (0.000-0.0310) K/mm3 BUN/Creatinine Ratio 5.6 L (9.0-21.6) Random Glucose 114 H D (70-110) mg/dL - Exam Constitutional: Present: Alert, Oriented x3, Cooperative ENT Exam: Present: hearing grossly normal Neck: Present: supple Respiratory: Present: decreased breath sounds, No rales, No wheezing Abdomen: Present: soft, nontender, obese, hypoactive Extremity: Present: no pedal edema, no calf tenderness Assessment/Plan - Problems/Diagnosis (1) Partial small bowel obstruction Problem: Resolved Narrative: will progress to soft diet and to regular diet as tolerated. (2) Abdominal pain Problem: Resolved Qualifiers: (3) Hypertension Problem: Chronic Qualifiers: Hypertension type: essential hypertension Qualified Code(s): I10 - Essential (primary) hypertension Narrative: will add Norvasc. (4) GERD (gastroesophageal reflux disease) Problem: Chronic (5) Hypothyroid Problem: Chronic (6) COPD (chronic obstructive pulmonary disease) Problem: Chronic Qualifiers: (7) History of atrial fibrillation Problem: Chronic (8) Leukocytosis Problem: Acute Narrative: check CXR. WBC resolved. ADDENDUM: CXR showed puulmonary nodule RUL- will do CTS or PET sca on outpatient basis. (9) ARF (acute renal failure) Problem: Resolved
[2017-05-20] MEDS: ALBUTEROL SULFATE 2.5 MG/0.5 ML VIAL.NEB IH PRN (18:10)
[2017-05-20] MEDS: PANTOPRAZOLE SODIUM 40 MG in NORMAL SALINE 100 ML IV SCH (20:37)
[2017-05-20] MEDS: rOPINIRole HCL 1 MG TABLET PO SCH (20:37)
[2017-05-21] MEDS: metroNIDAZOLE/SODIUM CHLORIDE 500 MG/100 ML BAG IV SCH ×2 (02:03→09:18)
[2017-05-21] MEDS: BUDESONIDE 0.5 MG/2 ML VIAL.NEB IH SCH (06:17)
[2017-05-21] MEDS: ALBUTEROL SULFATE 2.5 MG/0.5 ML VIAL.NEB IH PRN (06:18)
[2017-05-21] MEDS ORDERED: amLODIPine BESYLATE 10 MG TABLET PO SCH (07:18)
--- NOTE | 2017-05-21 08:23 | DS ---
(1) Partial small bowel obstruction Problem: Resolved (2) Abdominal pain Problem: Resolved Qualifiers: (3) Hypertension Problem: Chronic Qualifiers: Hypertension type: essential hypertension Qualified Code(s): I10 - Essential (primary) hypertension (4) GERD (gastroesophageal reflux disease) Problem: Chronic (5) Hypothyroid Problem: Chronic (6) COPD (chronic obstructive pulmonary disease) Problem: Chronic Qualifiers: (7) History of atrial fibrillation Problem: Chronic (8) Leukocytosis Problem: Acute (9) ARF (acute renal failure) Problem: Resolved Description of Stay: Ranjith Johnson, is 61-year-old white male with previous medical history of COPD, morbid obesity, atrial fibrillation, hypertension, hyperlipidemia, hypothyroidism, who was admitted on 05/15/2017 because of abdominal pain. The patient had been having diffuse abdominal pain over the last 2 days [employer]. This was associated with nausea, bloating but no vomiting. His pain was 7/10, sharp , waxing and waning. Patient said that he had right inguinal hernia that was repaired when he was a child. He has not had any abdominal surgery after that and has had no problems since then . He had 1 liquid stool the afternoon [employer] but had a good bowel movement earlier on the morning of admission. He denied any fever or chills; denied any constipation . In the emergency room his abdominal x-ray showed dilated bowel loops consistent with partial small bowel obstruction. His CT scan showed partial small bowel obstruction on the mid to distal jejunal area of undetermined etiology. He was then admitted for further management. Surgery was consulted and they recommended bowel rest. NGT was instituted and IVF/pain control was continiued. Serial abdominal Xrays were doen until resolutuon of PSBO . He was started on clear liuids and progressed to regular diet. He tolerated them well and BM yesterday afternoon. He is stable to be discharged. Procedures Performed: none Discharge Disposition: Home self care Disposition: Home self-care Condition: Stable Discharge Activity: Activity as tolerated Discharge Diet: Low salt, Low fat/chol Referrals: Brian Valadez MD [Primary Care Provider] - Additional Patient Instructions (free text): may follow up with me x 1 visit in [address] Reji Otto is unavailable. Prescriptions (Any new or edited meds): amLODIPine BESYLATE [Norvasc] 10 mg PO DAILY #30 tablet Sennosides [Senna Lax] 8.6 mg PO BID #60 tablet Complete Home Medications List: Complete Home Medication List: Albuterol Sulfate [Albuterol Sulfate 0.63 MG/3ML] 0.63 mg IH QID PRN 09/21/15 Albuterol Sulfate [Proair Hfa] 2 puff IH TID PRN 09/21/15 Beclomethasone Dipropionate [Qvar] 2 puff IH BID 09/21/15 Losartan Potassium [Cozaar] 50 mg PO DAILY 09/21/15 Metoprolol Tartrate [Lopressor] 50 mg PO DAILY 09/21/15 Ropinirole HCl 1 mg PO HS 09/21/15 Tiotropium [place] [Spiriva] 1 cap IH DAILY 09/21/15 Acetaminophen [Tylenol] 650 mg PO QID PRN #0 tablet 09/23/15 Amiodarone HCl [Cordarone] 400 mg PO DAILY 05/15/17 Aspirin [Aspirin Enteric Coated] 81 mg PO DAILY 05/15/17 Levothyroxine Sodium [Synthroid] 175 mcg PO DAILY 05/15/17 Pantoprazole Sodium 40 mg PO DAILY 05/15/17 Sennosides [Senna Lax] 8.6 mg PO BID #60 tablet 05/21/17 amLODIPine BESYLATE [Norvasc] 10 mg PO DAILY #30 tablet 05/21/17
[2017-05-21] MEDS: ASPIRIN 81 MG TABLET.DR PO SCH (09:16)
[2017-05-21] MEDS: LOSARTAN POTASSIUM 50 MG TABLET PO SCH (09:16)
[2017-05-21] MEDS: AMIODARONE HCL 200 MG TABLET PO SCH (09:16)
[2017-05-21] MEDS: METOPROLOL TARTRATE 50 MG TABLET PO SCH (09:16)
[2017-05-21] MEDS: TIOTROPIUM BROMIDE 5 CAP INHALER IH SCH (09:17)
[2017-05-21] MEDS: LEVOTHYROXINE SODIUM 175 MCG TABLET PO SCH (09:17)
[2017-05-21 10:47] VITALS: BP 178/86
== END 2017-05-21 11:15 | disposition home or self-care (01) | DRG 389 ==
LOC: ER 15:52 → MS 19:15 → OBSVTOIN 05-16 10:16
PROVIDERS: ADMIT Internal Medicine; ATTEND Internal Medicine
DX: K56.600 Partial intestinal obstruction, unspecified as to cause (principal); N17.9 Acute kidney failure, unspecified; D72.829 Elevated white blood cell count, unspecified; I10 Essential (primary) hypertension; E78.5 Hyperlipidemia, unspecified; E03.9 Hypothyroidism, unspecified; K21.9 Gastro-esophageal reflux disease without esophagitis; J44.9 Chronic obstructive pulmonary disease, unspecified; I48.2 Chronic atrial fibrillation; Z79.82 Long term (current) use of aspirin; Z87.891 Personal history of nicotine dependence